=== PATIENT | male | born 1955 | race Caucasian/White ===

== ENCOUNTER 2017-07-08 02:34 | Inpatient (IN) | payer OTHER ==
[2017-07-07 15:18] LABS: INR 0.98
[~2017-07-08] VITALS: Ht 177.8 cm; Wt 132.0 kg
[2017-07-08] VITALS (15 sets, daily range): BP systolic 90–131; BP diastolic 10–78
[~2017-07-08 02:34] MED LIST: ATOR20TA65 PO; MULT1CAP59 PO; SERT-181 PO; TADA5TAB7 PO
[2017-07-08] MEDS ORDERED: LIDOCAINE/SOD BICARB 8.4% SYR ID ONE (06:15)
[2017-07-08] MEDS ORDERED: CELECOXIB 200 MG CAP PO ONE (06:15)
[2017-07-08] MEDS ORDERED: PREGABALIN 50 MG CAP PO ONE (06:15)
[2017-07-08] MEDS ORDERED: ceFAZolin(*) 2GM/D5W 50ML 50 ML IVPB ONE (06:15)
[2017-07-08] MEDS ORDERED: ACETAMINOPHEN 500 MG TAB PO ONE (06:15)
[2017-07-08] MEDS ORDERED: MIDAZOLAM 2 MG/2 ML VIAL IVP PRN (06:15)
[2017-07-08] MEDS ORDERED: FAMOTIDINE 20 MG TAB PO ONE (06:15)
[2017-07-08] MEDS ORDERED: TRANEXAMIC AC 1000 MG/10ML SDV 1,000 MG in DEXTROSE 5% 50 ML BAG 50 ML IV ONE (06:15)
[2017-07-08] MEDS ORDERED: cloNIDine EPIDUR INJ 100MCG/ML 40 MCG, ROPIVACAINE 0.5% 20 ML VIAL 25 ML, EPINEPHrine H... INJ ONE (06:15)
[2017-07-08] MEDS ORDERED: NORMOSOL R SOLN(*) 1000 ML BAG 1,000 ML IV PRN ×3 (06:15→17:55)
[2017-07-08] MEDS ORDERED: PROPOFOL EMUL(*) 10MG/ML 20 ML 20 ML ONE (07:07)
[2017-07-08] MEDS ORDERED: fentaNYL CITR 250 MCG/5 ML AMP ONE (07:07)
[2017-07-08] MEDS ORDERED: LIDOCAINE 2% IV 100 MG/5ML SYR ONE (07:08)
[2017-07-08] MEDS ORDERED: DEXAMETHASONE SOD PHOS 10MG/ML ONE ×2 (07:32→10:27)
[2017-07-08] MEDS ORDERED: ONDANSETRON 4 MG/2 ML VIAL ONE ×2 (07:32→10:28)
[2017-07-08] MEDS ORDERED: KETAMINE HCL 200 MG/20 ML MDV ONE ×2 (07:34→08:47)
[2017-07-08] MEDS ORDERED: ePHEDrine 25 MG/5 ML DISP.SYR IVP ONE ×2 (07:35→08:16)
[2017-07-08] MEDS ORDERED: GLYCOPYRROLATE 0.2MG/ML 1 ML INJ ONE ×2 (07:43→07:56)
[2017-07-08] MEDS ORDERED: WATER STERILE IRRIG(*) 1000ML 1,000 ML ONE (09:44)
[2017-07-08] MEDS ORDERED: ALBUTEROL/IPRATROPIUM 3 ML NEB ONE (10:42)
--- NOTE | 2017-07-08 11:28 | RADIOLOGY IMAGING REPORT ---
FACILITY: [facility] [place] PATIENT NAME: Ángel Emerson : 1955 MR: [id number] V: [id number] EXAM DATE: ORDERING PHYSICIAN: SAMANTHA STELEE TECHNOLOGIST: Location: [facility] Patient: Ángel Emerson : 1955 Visit/Account:[id number] Date of Sevice: 07/08/2017 Technique: KNEE LIMITED LEFT HISTORY: S/P TOTAL KNEE ARTHROPLASTY, CHECK PLACEMENT Comparison studies: None FINDINGS: There is no acute fracture. Present is a left knee arthroplasty. There is gross anatomic alignment. Expected adjacent postoperative changes are noted. IMPRESSION: 1. Left knee arthroplasty without evidence of acute hardware complication. Report Dictated By: Remberto Galan DO at 07/08/2017 11:23 AM Report E-Signed By: Remberto Galan DO at 07/08/2017 11:24 AM WSN:[id number]
--- NOTE | 2017-07-08 11:29 | OPERATIVE REPORT 1 ---
EVENT DATE: July 08, 2017 SURGEON: Karl Ricardo MD ANESTHESIOLOGIST: Pa Giraldo MD ANESTHESIA: Spinal followed by general, 1 g of IV tranexamic acid 10 minutes prior to start and at the end of implantation. 50 mL of our standard Toradol/ ropivacaine cocktail given at the end of implantation. CERTIFIED MEDICAL RECORDS CODER: MARIBELL Mckinnon, [employer] PREOPERATIVE DIAGNOSIS Left knee degenerative joint disease with varus alignment. POSTOPERATIVE DIAGNOSIS Left knee degenerative joint disease with varus alignment. PROCEDURE PERFORMED Left total knee arthroplasty. IMPLANTS MicroPort medial pivot shift CS system with a 6 femur, 6+ tibia, 14 mm CS insert , 8 x 35 mm symmetric patella, femur cut 6 degrees valgus, 10 mm, 2 packages of [place] blue DonJoy cement, ZipLine wound closure system. SPECIMENS None. COMPLICATIONS None. ESTIMATED BLOOD LOSS Less than 200 mL. OPERATION Patient received appropriate preoperative antibiotic, was brought to the OR, where Dr. Giraldo performed spinal followed by general anesthesia. Left thigh tourniquet was placed, left lower extremity prepped and draped in the usual sterile fashion. Midline incision was made, followed by medial parapatellar arthrotomy. We dissected subperiosteally along the medial tibial plateau to the level of the semimembranosus insertion. Fat pad, which was significant, was excised, patella released, everted, knee brought up into flexion. Osteophytes were noted along the femur medial, lateral and superior, and these were removed rongeur. Eburnation was noted in the medial compartment, grade 3 and 4 change in the patellofemoral compartment. ACL and PCL released subperiosteally by Bovie. Appropriate retractors were placed. Remaining articular cartilage was removed from the distal femoral condyles by sagittal saw , then we broached the canal with the step cut drill then placed our distal femoral alignment guide, setting the cutting block up at 10 mm, 6 degrees valgus. Retractors were placed to protect the soft tissue. Distal cut was made. 3 degree external rotation guide and sizer was then placed, referencing out the posterior condyles, the epicondyles and anterior flange. Femur was sized to a #6. We drilled our 3 degree external rotation holes. The 4-in-1 cutting block was placed. Z retractor was placed to protect the soft tissue. We made our 4 cuts. Tibia was brought anteriorly on the femur with appropriate retractors. Step cut drill was utilized to broach the tibial canal. We placed our intramedullary tibial guide. We were satisfied with the slope as referenced from the canal. We then set up our cut depth by referencing 10 mm off the least involved lateral tibial plateau and assessing for rotation. We pinned the block into place. We care taken to protect the soft tissues, we made our tibial cut. This was sized to a 6+. Stump of the ACL and PCL and medial and lateral meniscus were removed by Bovie. Curved osteotome was utilized to remove posterior osteophytes, then we elevated the posterior capsule and gastrocs off the posterior condyles with the Harding. Referencing from the previous rotation, we pinned our 6+ tibial base plate into place. We then placed a 10 mm insert, then our femur. We worked our way up then to 14 mm. This gave us full extension, flexion to about 120 degrees, and then we started being limited by body habitus. He is stable through varus valgus stress. At 90 degrees, he had satisfactory anterior drawer. We brought the knee into full extension. Patella was measured to be 25 mm. We cut this down 8 with a guide. This accepted a 35 x 8 peg hole guide, which was then positioned inferiorly medially, and peg holes were drilled. We placed our trial patella. Peg holes were drilled for the femur and pegs placed, followed by cutting for our trochlear chip, which was then placed. Again we had the aforementioned range of motion and stability, and patella tracked well. Patella , femur, tibial insert were then removed, tibia brought anteriorly on the femur with appropriate retractors. We set up our guide tower. This was then cut, reamed and punched. This instrumentation was removed, bone plug placed in the distal femur. Knee was brought out in full extension. We copiously irrigated. We mixed two packages of DonJoy [place] blue cement. We injected 10 mL of our cocktail in the posterior capsule then placed the knee in appropriate position for cementation. We copiously irrigated surfaces once again, starting at the tibia. This was cemented into place followed by our 14 mm insert, then our femur. Excess cement was removed. The knee was brought up in full extension with axial compression while cement was hardened. After 14 minutes, the cement was cured. Again we had 0-120 degrees range of motion, which was at the end point of body habitus. We could push past this, but again this was not natural for patient. He was stable through varus valgus from 0 to 90 degrees. At 90 degrees, he had a satisfactory anterior drawer. We copiously irrigated once again with pulse lavage, injected the remaining 40 mL of our cocktail into the distal quad musculature. I then placed the knee at about 30 degrees and closed the arthrotomy with #2 Vicryl in [id number] suture fashion, followed by 2- 0 Vicryl for subcutaneous tissues. With the knee bent at 45 degrees, we placed our ZipLine wound closure system in standard fashion. We then applied a compressive dressing. Patient was extubated and taken to recovery in stable condition. Hospitalist team will be consulted for medical management and anticoagulation, PT and OT for rehab. X-rays are pending. LILI
--- NOTE | 2017-07-08 11:37 | OPERATIVE REPORT 1 ---
EVENT DATE: July 08, 2017 SURGEON: Karl Ricardo MD ANESTHESIOLOGIST: Pa Giraldo MD ANESTHESIA: Spinal followed by general. BOARDING HOUSE MANAGER: MARIBELL Mckinnon, ADHESIVE BONDING MACHINE OPERATOR PREOPERATIVE DIAGNOSIS Left knee degenerative joint disease with varus alignment. POSTOPERATIVE DIAGNOSIS Left knee degenerative joint disease with varus alignment. PROCEDURE PERFORMED Left total knee arthroplasty. IMPLANTS MicroPort medial pivot CS system with a 6+ tibia, 6 femur, 14 mm CS insert, and 35 x 8 symmetric patella. Femur was cut 6 degrees valgus, 10 mm. We utilized two packages of DonJoy [place] blue cement. We utilized ZipLine wound closure system. We utilized 50 mL of our standard ropivacaine/Toradol cocktail at the end of the case, and Anesthesia gave 1 g of IV tranexamic acid 10 minutes prior to start and after the implantation of the implants. SPECIMENS None. COMPLICATIONS None. ESTIMATED BLOOD LOSS Less than 200 mL. OPERATION Patient received appropriate preoperative antibiotic, was brought to the OR, where Dr. Giraldo performed spinal followed by general anesthesia. MTDD
[2017-07-08] MEDS ORDERED: NALOXONE HCL 0.4 MG/ML VIAL IVP PRN ×2 (11:45→17:55)
[2017-07-08] MEDS ORDERED: FLUSH 10 ML SYR IVP PRN ×2 (11:45→17:50)
[2017-07-08] MEDS ORDERED: MAGNESIUM HYDROXIDE* 30ML UDCP PO PRN ×2 (11:45→17:50)
[2017-07-08] MEDS ORDERED: ZOLPIDEM TARTRATE 5 MG TAB PO PRN ×2 (11:45→17:55)
[2017-07-08] MEDS ORDERED: MORPHINE SULFATE 30 MG PCA IV PRN ×2 (11:45→17:50)
[2017-07-08] MEDS ORDERED: ONDANSETRON 4 MG/2 ML VIAL IVP PRN ×2 (11:45→17:55)
[2017-07-08] MEDS ORDERED: MORPHINE 2 MG/ML SYR IVP PRN ×2 (11:45→17:55)
[2017-07-08] MEDS ORDERED: BISACODYL 10 MG SUPP PR PRN ×2 (11:45→17:50)
[2017-07-08] MEDS ORDERED: PROMETHAZINE 25 MG/ML 1 ML AMP IVP PRN ×2 (11:45→17:55)
[2017-07-08] MEDS ORDERED: oxyCODONE HCL 5 MG CAP PO PRN (11:50)
[2017-07-08] MEDS ORDERED: traMADol 50 MG TAB PO PRN ×2 (11:50→17:55)
[2017-07-08] MEDS ORDERED: KETOROLAC TROM 10MG TAB PO PRN (11:50)
[2017-07-08] MEDS ORDERED: ALPR-448 PO (12:12)
--- NOTE | 2017-07-08 12:47 | Hospitalist Progress Note ---
Subjective Progress Notes Subjective Patient seen post-op. Reviewed PMHx (BPH, LUZMA on CPAP, RUE DVT ~20 years ago - treated with warfarin) and his medications. At present, he reports doing well. No CP/SOB/N/V. Physical Exam Vital Signs Date Time Temp Pulse Resp B/P (MAP) Pulse Ox O2 Delivery O2 Flow Rate FiO2 07/08/17 12:00 67 111/63 (79) 91 07/08/17 11:53 Oxy Mask 4.0 07/08/17 11:45 97.9 16 Intake and Output 07/09/17 06:59 Intake Total 2010 ml Output Total 150 ml Balance 1860 ml Intake Oral 360 ml IV Total 1650 ml Output Estimated Blood Loss 150 ml General Appearance: Alert, Awake Cardiovascular: Regular Rate and Rhythm Respiratory: Clear to Auscultation Assessment and Plan Problems: (1) History of DVT (deep vein thrombosis) Status: Resolved Assessment & Plan: History of RUE DVT. Will place on Xarelto 10mg daily for prophylaxis. (2) LUZMA on CPAP Status: Chronic Assessment & Plan: Continue CPAP. (3) BPH (benign prostatic hyperplasia) Status: Chronic Assessment & Plan: Continue Cialis 5mg daily. (4) Depression Status: Chronic Assessment & Plan: Continue Zoloft 150mg daily. Exam Sepsis Risk: No Definite Risk ROSS GOODSON MD July 08, 2017 12:47
[2017-07-08] MEDS ORDERED: ALPRAZolam 0.5 MG TAB PO PRN ×2 (12:50→17:50)
[2017-07-08] MEDS ORDERED: ACETAMINOPHEN 500 MG TAB PO PRN ×2 (14:05→17:45)
[2017-07-08] MEDS ORDERED: ceFAZolin(*) 2GM/D5W 50ML 50 ML IVPB SCH (15:00)
[2017-07-08] MEDS ORDERED: traMADol 50 MG TAB ONE (15:36)
[2017-07-08] MEDS: ATORVASTATIN 10 MG TAB PO SCH (20:33)
[2017-07-08] MEDS: oxyCODONE HCL 5 MG CAP PO PRN (20:34)
[2017-07-08] MEDS ORDERED: ATORVASTATIN 10 MG TAB PO SCH (21:00)
[2017-07-08] MEDS: ceFAZolin(*) 2GM/D5W 50ML 50 ML IVPB SCH (23:37)
[2017-07-09] MEDS: oxyCODONE HCL 5 MG CAP PO PRN ×5 (00:44→23:30)
[2017-07-09 03:40] VITALS: BP 85/48
[2017-07-09] MEDS: ceFAZolin(*) 2GM/D5W 50ML 50 ML IVPB SCH (06:23)
[2017-07-09] MEDS: ACETAMINOPHEN 500 MG TAB PO SCH ×3 (06:23→23:26)
[2017-07-09] MEDS ORDERED: DIAZEPAM 5 MG TAB PO PRN (07:10)
[2017-07-09 07:17] VITALS: BP 92/60
[2017-07-09] MEDS: RIVAROXABAN 10 MG TAB PO SCH (08:54)
[2017-07-09] MEDS: SERTRALINE HCL 50 MG TAB PO SCH (08:54)
[2017-07-09] MEDS ORDERED: SERTRALINE HCL 50 MG TAB PO SCH (09:00)
[2017-07-09] MEDS ORDERED: PATIENT'S OWN MED PO SCH ×2 (09:00)
[2017-07-09] MEDS ORDERED: RIVAROXABAN 10 MG TAB PO SCH (09:00)
[2017-07-09] MEDS: TADALAFIL 5 MG PO SCH (09:06)
--- NOTE | 2017-07-09 10:07 | Hospitalist Progress Note ---
Subjective Progress Notes Subjective He has complaints of increased pain to the left knee. Patient Complains of: Cardiovascular: No: Chest Pain Respiratory: No: Shortness of Breath Physical Exam Vital Signs Date Time Temp Pulse Resp B/P (MAP) Pulse Ox O2 Delivery O2 Flow Rate FiO2 07/09/17 07:26 95 Nasal Cannula 5.0 07/09/17 07:17 98.0 51 12 92/60 (71) Intake and Output 07/10/17 00:59 Intake Total 50 ml Balance 50 ml IV Total 50 ml # Voids 1 General Appearance: Alert, Awake, No Acute Distress, Afebrile Neuro: No Gross deficits Cardiovascular: Regular Rate and Rhythm Respiratory: No Respiratory Distress, Clear to Auscultation GI: Soft and Non-Tender Psych: Alert & Oriented X3, Appropriate Mood & Affect Result Diagram: 07/09/17 0720 Assessment and Plan Problems: (1) Status post left knee replacement Status: Acute Assessment & Plan: Followed by Dr. Ricardo. (2) History of DVT (deep vein thrombosis) Status: Resolved Assessment & Plan: History of RUE DVT. Will place on Xarelto 10mg daily for prophylaxis. (3) LUZMA on CPAP Status: Chronic Assessment & Plan: Continue CPAP. (4) BPH (benign prostatic hyperplasia) Status: Chronic Assessment & Plan: Continue Cialis 5mg daily. (5) Depression Status: Chronic Assessment & Plan: Continue Zoloft 150mg daily. (6) Morbid obesity with BMI of 40.0-44.9, adult Exam Sepsis Risk: No Definite Risk ROSALINA ERICKSON METALLIC YARN SLITTING MACHINE OPERATOR July 09, 2017 10:07
--- NOTE | 2017-07-09 10:27 | OPERATIVE REPORT 1 ---
EVENT DATE: July 08, 2017 SURGEON: Karl Ricardo MD ANESTHESIOLOGIST: Pa Giraldo MD ANESTHESIA: Spinal followed by general, 1 g of IV tranexamic acid 10 minutes prior to start and at the end of implantation, 50 mL of our standard Toradol/ ropivacaine cocktail given at the end of implantation. MFTS: MARIBELL Mckinnon, LOCAL FLATBED DRIVER PREOPERATIVE DIAGNOSIS Left knee degenerative joint disease with varus alignment. POSTOPERATIVE DIAGNOSIS Left knee degenerative joint disease with varus alignment. PROCEDURE PERFORMED Left total knee arthroplasty. IMPLANTS MicroPort medial pivot shift CS system with a 6 femur, 6+ tibia, 14 mm CS insert , 8 x 35 symmetric patella, femur cut 6 degrees valgus, 10 mm, 2 packages of [place] blue DonJoy cement, ZipLine wound closure system. SPECIMENS None. COMPLICATIONS None. ESTIMATED BLOOD LOSS Less than 200 mL. OPERATION Patient received appropriate preoperative antibiotic, was brought to the OR, where Dr. Giraldo performed spinal followed by general anesthesia. Left thigh tourniquet was placed, left lower extremity prepped and draped in the usual sterile fashion. Midline incision was made, followed by medial parapatellar arthrotomy. We dissected subperiosteally along the medial tibial plateau to the level of the semimembranosus insertion. Fat pad, which was significant, was excised, patella released, everted, knee brought up into flexion. Osteophytes were noted along the femur, medial, lateral and superior, and these were removed rongeur. Eburnation was noted in the medial compartment, grade 3 and 4 change in the patellofemoral compartment. ACL and PCL released subperiosteally by Bovie. Appropriate retractors were placed. Remaining articular cartilage was removed from the distal femoral condyles by sagittal saw , then we broached the canal with the step cut drill then placed our distal femoral alignment guide, setting the cutting block up at 10 mm, 6 degrees valgus. Retractors were placed to protect the soft tissue. Distal cut was made. 3 degree external rotation guide and sizer was then placed, referencing out the posterior condyles, epicondyles and anterior flange. Femur was sized to a #6. We drilled our 3 degree external rotation holes. The 4-in-1 cutting block was placed. Z retractor was placed to protect the soft tissue. We made our 4 cuts. Tibia was brought anteriorly on the femur with appropriate retractors. Step cut drill was utilized to broach the tibial canal. We placed our intramedullary tibial guide. We were satisfied with the slope as referenced from the canal. We then set up our cut depth by referencing 10 mm off the least involved lateral tibial plateau and assessing for rotation. We pinned the block into place. With care taken to protect the soft tissues, we made our tibial cut. This was sized to a 6+. Stump of the ACL and PCL and medial and lateral meniscus were removed by Bovie. Curved osteotome was utilized to remove posterior osteophytes, then we elevated the posterior capsule and gastrocs off the posterior condyles with the Harding. Referencing from the previous rotation, we pinned our 6+ tibial base plate into place. We then placed a 10 mm insert, then our femur. We worked our way up then to 14 mm. This gave us full extension, flexion to about 120 degrees, and then we started being limited by body habitus. He is stable through varus valgus stress. At 90 degrees, he had satisfactory anterior drawer. We brought the knee into full extension. Patella was measured to be 25 mm. We cut this down 8 with a guide. This accepted a 35 x 8 peg hole guide, which was then positioned inferiorly medially, and peg holes were drilled. We placed our trial patella. Peg holes were drilled for the femur and pegs placed, followed by cutting for our trochlear chip, which was then placed. Again we had the aforementioned range of motion and stability, and patella tracked well. Patella , femur, tibial insert were then removed, tibia brought anteriorly on the femur with appropriate retractors. We set up our guide tower. This was then cut, reamed and punched. This instrumentation was removed, bone plug placed in the distal femur. Knee was brought out in full extension. We copiously irrigated. We mixed two packages of DonJoy [place] blue cement. We injected 10 mL of our cocktail in the posterior capsule then placed the knee in appropriate position for cementation. We copiously irrigated surfaces once again, starting at the tibia. This was cemented into place followed by our 14 mm insert, then our femur. Excess cement was removed. The knee was brought up in full extension with axial compression while cement was hardened. After 14 minutes, the cement was cured. Again we had 0-120 degrees range of motion, which was at the end point of body habitus. We could push past this, but again this was not natural for patient. He was stable through varus valgus from 0 to 90 degrees. At 90 degrees, he had a satisfactory anterior drawer. We copiously irrigated once again with pulse lavage, injected the remaining 40 mL of our cocktail into the distal quad musculature. I then placed the knee at about 30 degrees and closed the arthrotomy with #2 Vicryl in [id number] suture fashion, followed by 2- 0 Vicryl for subcutaneous tissues. With the knee bent at 45 degrees, we placed our ZipLine wound closure system in standard fashion. We then applied a compressive dressing. Patient was extubated and taken to recovery in stable condition. Hospitalist team will be consulted for medical management and anticoagulation, PT and OT for rehab. X-rays are pending. LILI
[2017-07-09 11:17] VITALS: BP 104/65
[2017-07-09 12:35] VITALS: Ht 177.8 cm; Wt 132.0 kg
[2017-07-09 15:28] VITALS: BP 96/59
[2017-07-09 19:06] VITALS: BP 93/59
[2017-07-09] MEDS: ATORVASTATIN 10 MG TAB PO SCH (20:36)
[2017-07-10 04:15] VITALS: BP 100/61
[2017-07-10] MEDS: ACETAMINOPHEN 500 MG TAB PO SCH (06:28)
[2017-07-10] MEDS ORDERED: OXYC-869 PO (08:16)
[2017-07-10] MEDS: SERTRALINE HCL 50 MG TAB PO SCH (08:59)
[2017-07-10] MEDS: RIVAROXABAN 10 MG TAB PO SCH (08:59)
[2017-07-10] MEDS: TADALAFIL 5 MG PO SCH (09:00)
[2017-07-10] MEDS ORDERED: ASPI-757 PO (09:51)
--- NOTE | 2017-07-10 09:52 | Hospitalist Progress Note ---
Subjective Progress Notes Subjective He has no concerns this morning. He states he is ready to go home. Patient Complains of: Cardiovascular: No: Chest Pain Respiratory: No: Shortness of Breath Physical Exam Vital Signs Date Time Temp Pulse Resp B/P (MAP) Pulse Ox O2 Delivery O2 Flow Rate FiO2 07/10/17 04:15 97.0 53 12 100/61 (74) 91 CPAP 2.0 Intake and Output 07/11/17 00:59 Intake Total 600 ml Balance 600 ml Intake Oral 600 ml General Appearance: Alert, Awake, No Acute Distress, Afebrile Neuro: No Gross deficits Cardiovascular: Regular Rate and Rhythm Respiratory: No Respiratory Distress, Clear to Auscultation GI: Soft and Non-Tender Psych: Alert & Oriented X3, Appropriate Mood & Affect Result Diagram: 07/10/17 0522 Assessment and Plan Problems: (1) Status post left knee replacement Status: Acute Assessment & Plan: Followed by Dr. Ricardo. His blood pressures have been in the 90-100's systolic, but the patient denies any symptoms from his blood pressure. He reports he generally runs a little low at home prior to surgery also. (2) History of DVT (deep vein thrombosis) Status: Resolved Assessment & Plan: History of RUE DVT. Will place on Xarelto 10mg daily for prophylaxis. He will continue twelve days of Xarelto for DVT prophylaxis upon discharge. Upon completion of Xarelto, he will take Aspirin for two weeks. (3) LUZMA on CPAP Status: Chronic Assessment & Plan: Continue CPAP. (4) BPH (benign prostatic hyperplasia) Status: Chronic Assessment & Plan: Continue Cialis 5mg daily. (5) Depression Status: Chronic Assessment & Plan: Continue Zoloft 150mg daily. (6) Morbid obesity with BMI of 40.0-44.9, adult Exam Sepsis Risk: No Definite Risk ROSALINA ERICKSON NECK PINNER July 10, 2017 09:52
[2017-07-10] MEDS ORDERED: RIV10 PO (10:24)
--- NOTE | 2017-07-10 16:11 | DISCHARGE SUMMARY ---
HISTORY OF PRESENT ILLNESS A 62-year-old male admitted to Day Surgery who underwent right total knee arthroplasty. Postoperatively the hospitalist team was consulted for medical management and anticoagulation, PT for rehab. The first postop day was rather difficult for patient with pain control, but with addition of an anxiolytic he did better. The second night he slept well. This morning he has no pain. The right lower extremity is neurovascularly intact. Plan is for a shower and change of dressings today, as well as continued PT and medical management. Once he is cleared by the hospitalist team as well as PT, he will be eligible for discharge with outpatient PT and home CPM. PLAN Followup in [place] on July 17, 2017. PRINCIPAL DIAGNOSIS Right knee degenerative joint disease. PRINCIPAL PROCEDURE Right total knee arthroplasty. LILI
== END 2017-07-10 11:00 | disposition home or self-care (01) | DRG 470 ==
LOC: OR 02:34 → EDSTATUS 07:15 → OBSVTOIN 13:40 → MED 13:40
PROVIDERS: ADMIT Orthopaedic Surgery; ATTEND Orthopaedic Surgery
PROC: 5A09357 Assistance with Respiratory Ventilation, Less than 24 Consecutive Hours, Continuous Positive Airway Pressure (ICD-10-PCS; 2017-07-08)
PROC: 0SRD0J9 Replacement of Left Knee Joint with Synthetic Substitute, Cemented, Open Approach (ICD-10-PCS; principal; 2017-07-08 07:15)
DX: M17.12 Unilateral primary osteoarthritis, left knee (principal); Z68.41 Body mass index [BMI] 40.0-44.9, adult; M21.162 Varus deformity, not elsewhere classified, left knee; N40.0 Benign prostatic hyperplasia without lower urinary tract symptoms; G47.33 Obstructive sleep apnea (adult) (pediatric); F32.9 Major depressive disorder, single episode, unspecified; E66.01 Morbid (severe) obesity due to excess calories; J44.9 Chronic obstructive pulmonary disease, unspecified; F17.220 Nicotine dependence, chewing tobacco, uncomplicated; Z96.643 Presence of artificial hip joint, bilateral; Z99.81 Dependence on supplemental oxygen; Z86.718 Personal history of other venous thrombosis and embolism
CPT/HCPCS: 36415; 85014; 85018; 85610; 86850; 86900; 86901; 94640; 94660; 97161; C1713; C1776; J0171; J0690; J0735; J1100; J1885; J2001; J2250; J2270; J2405; J2704; J2795; J3010; J3490; J7050; J7060